=== PATIENT | female | born 1980 | race African-American/Black ===

== ENCOUNTER 2017-01-25 10:37 | Inpatient (IN) | payer MEDICARE, OTHER ==
[2017-01-25] VITALS (12 sets, daily range): BP systolic 95–129; BP diastolic 45–69
[~2017-01-25] VITALS: Ht 160 cm; Wt 207.3 kg
[~2017-01-25 10:37] MED LIST: ACET325T16 PO; ALBU2.5V5 NEB; ATEN25TA PO; ENOX40DI SQ; FERR-26 PO; FURO-68 PO; LEVO500T38 PO; LEVO750T31 PO; MEDR10TA3 PO; METF500T4 PO; METH29OI TP; MINE120C TP; NAPR220T70 PO; NAPR500T PO; PANT40TA5 PO; PRED-220 PO; PROAIR HFA8.5 GM IH; [UNRECOGNIZED DRUG - OTHER]; hypertension
[2017-01-25] MEDS ORDERED: 0.9 % SODIUM CHLORIDE 10 ML DISP.SYRIN. IV PRN (11:00)
--- NOTE | 2017-01-25 11:14 | RAD ---
Indication: Dizziness and shortness of breath. Time of exam 10:59 AM Correlation is made with prior chest from 08/13/2016. The heart is enlarged but stable. There is central congestion but no overt failure. No effusion or pneumothorax is seen. Impression: Cardiomegaly and central congestion.
[2017-01-25] MEDS ORDERED: IV NORMAL SALINE 1000ML BAG 1,000 ML IV SCH (11:15)
--- NOTE | 2017-01-25 11:16 | EKG ---
[facility] [address] [place] [address] Test Date: 2017-01-25 Test Time: 10:41:40 Pat Name: SIRIA PHAN Department: Room: Gender: F Sap Basis: : 1980 Requested By: CHANDAN ELISE Order Number: [id number] Reading MD: Willme Mccullough Measurements Intervals [place] Rate: 84 P: 64 [place]: 128 QRS: 66 QRSD: 94 T: 26 QT: 342 QTc: 407 Interpretive Statements SINUS RHYTHM Electronically Signed On 01-30-2017 9:18:07 CDT by Willem Mccullough
[2017-01-25 11:32] LABS: BASE EXCESS COOX 21 mmol/L (-3-3); CARBON MONOXIDE 0.6 % (0.0-1.9); HCO3 COOX 53 mmol/L (21-28); METHEMOGLOBIN 0.4 % (0.0-1.9); OXYHEMOGLOBIN 85.5 %; PH COOX 7.25 (7.35-7.45); PO2 COOX 62 mmHg (85-108); SAT O2 COOX 86 % (92-99); TOTAL HEMOGLOBIN 9.8 g/dL
[2017-01-25 11:47] LABS: BLOOD UREA NITROGEN 17 mg/dL (7-20); BUN/CREATININE RATIO 34 (6-20); CALCIUM 8.8 mg/dL (8.5-10.1); CARBON DIOXIDE 45 mmol/L (21-32); CHLORIDE 100 mmol/L (98-107); CREATININE 0.5 mg/dL (0.6-1.0); GFR 167.1; GLUCOSE 115 mg/dL (70-99); POTASSIUM 4.5 mmol/L (3.5-5.1); SODIUM 141 mmol/L (136-145)
[2017-01-25 11:51] LABS: ALBUMIN 2.9 g/dL (3.4-5.0); ALBUMIN/GLOBULIN RATIO 0.6 (1.0-1.7); ALK PHOS 66 U/L (46-116); ALT (SGPT) 22 U/L (14-59); AST (SGOT) 13 U/L (15-37); TOTAL BILIRUBIN 0.3 mg/dL (0.2-1.0); TOTAL PROTEIN 8.1 g/dL (6.4-8.2)
--- NOTE | 2017-01-25 12:18 | PHYS DOC ---
Past Medical History Past Medical History: Anemia, Asthma, CHF, COPD, Diabetes-Type II, Hypertension , Other Additional Past Medical Histor: morbid obesity, PICA (dirt), obesity hypoventilation, HYPERCAPNIA Past Surgical History: Alcohol Use: None Drug Use: None Adult General Chief Complaint Chief Complaint: DIZZY/LIGHT HEADED HPI HPI PCP is Dr. Chirag Galvan She is a 36-year-old morbidly obese female with history of obstructive sleep apnea and hypercarbia visits with respiratory distress that began this morning. Patient is normally on BiPAP at home admit she's not been able to tolerate her BiPAP last few days and has not worn it this morning extremely tired very short of breath with exertion with no chest pain no abdominal pain noted, no cough with production of sputum no URI symptoms no fevers or chills. Patient has peripheral edema all the time nothing new today nothing changed. Patient admits to no change in medications no sick contacts or recent antibiotic. Review of Systems Review of Systems Constitutional: Denies fever or chills [] Eyes: Denies change in visual acuity, redness, or eye pain [] HENT: Denies nasal congestion or sore throat [] Respiratory: Minus shortness of breath without cough. Cardiovascular: No additional information not addressed in HPI [] GI: Denies abdominal pain, nausea, vomiting, bloody stools or diarrhea [] : Denies dysuria or hematuria [] Extremities: Patient has peripheral edema lower +2 midthigh. Integument: chronic venous stasis in the lower external is bilaterally Neurologic: Denies headache, focal weakness or sensory changes [] Endocrine: Denies polyuria or polydipsia [] Current Medications Current Medications Current Medications Medications (Trade) Dose Ordered Sig/Abdiel Start Time Stop Time Status Last Admin Dose Admin Sodium Chloride 1,000 ml @ 1,000 mls/hr Q1H 01/25/17 11:15 01/25/17 12:14 01/25/17 11:09 1,000 MLS/HR Sodium Chloride (Normal Saline Flush) 10 ml QSHIFT PRN 01/25/17 11:00 01/25/17 11:09 10 ML Allergies Allergies Allergies Coded Allergies Type Severity Reaction Last Updated Verified No Known Drug Allergies 10/01/14 No Physical Exam Physical Exam Constitutional: Morbidly obese patient with obvious respiratory distress nontoxic in appearance is able speak in 3-5 word sentences. No obvious respiratory retractions HENT: Normocephalic, atraumatic, bilateral external ears normal, oropharynx is dry with poor dentition Eyes: PERRLA, EOMI, conjunctiva normal, no discharge. [] Neck: Normal range of motion, no tenderness, supple, no stridor. [] Cardiovascular tachycardia noted Lungs & Thorax: Patient with decreased breath sounds in all lung antunez secondary to body habitus no wheezes obvious E noted. Abdomen: Bowel sounds normal, soft, no tenderness, no masses, no pulsatile masses. [] Skin: Warm, dry, no erythema, no rash. [] Back: No tenderness, no CVA tenderness. [] Extremities: No tenderness, no cyanosis, noted edema in the lower x-rays bilaterally. Neurologic: Alert and oriented X 3, normal motor function, normal sensory function, no focal deficits noted. [] Psychologic: Affect normal, judgement normal, mood normal. [] Current Patient Data Vital Signs Vital Signs Date Time Temp Pulse Resp B/P (MAP) Pulse Ox O2 Delivery O2 Flow Rate FiO2 01/25/17 11:44 100 BiPAP/CPAP 01/25/17 10:40 98.3 88 20 148/63 (91) 4.0 98.3 Lab Values Laboratory Tests Test 01/25/17 11:00 D-Dimer ([place]) 0.28 ug/mlFEU (0.00-0.50) Sodium Level 141 mmol/L (136-145) Potassium Level 4.5 mmol/L (3.5-5.1) Chloride Level 100 mmol/L (98-107) Carbon Dioxide Level 45 mmol/L (21-32) H Anion Gap -4 (6-14) L Blood Urea Nitrogen 17 mg/dL (7-20) Creatinine 0.5 mg/dL (0.6-1.0) L Estimated GFR (Cockcroft-Gault) 167.1 BUN/Creatinine Ratio 34 (6-20) H Glucose Level 115 mg/dL (70-99) H Calcium Level 8.8 mg/dL (8.5-10.1) Total Bilirubin 0.3 mg/dL (0.2-1.0) Aspartate Amino Transferase (AST) 13 U/L (15-37) L Alanine Aminotransferase (ALT) 22 U/L (14-59) Alkaline Phosphatase 66 U/L (46-116) Troponin I Quantitative < 0.017 ng/mL (0.000-0.055) Total Protein 8.1 g/dL (6.4-8.2) Albumin 2.9 g/dL (3.4-5.0) L Albumin/Globulin Ratio 0.6 (1.0-1.7) L Laboratory Tests 01/25/17 11:00 EKG EKG EKG, read by Dr. Elise hr 84, NSR, ns t wave changes, no ST changes, normal TN, QRS interval] Radiology/Procedures Radiology/Procedures [] IMAGING REPORT Signed PATIENT: SIRIA PHAN ACCOUNT: [id number] : 1980 LOCATION: ER AGE: 36 SEX: F EXAM STATUS: PRE ER ORD. PHYSICIAN: CHANDAN ELISE MD REASON: dizziness shortness of breath PROCEDURE: CHEST AP ONLY Indication: Dizziness and shortness of breath. Time of exam 10:59 AM Correlation is made with prior chest from 08/13/2016. The heart is enlarged but stable. There is central congestion but no overt failure. No effusion or pneumothorax is seen. Impression: Cardiomegaly and central congestion. DICTATED and SIGNED BY: DENIS LOPEZ MD DATE: 01/25/17 1111 CC: CHANDAN ELISE MD; GEE LAW MD ~ Course & Med Decision Making Course & Med Decision Making Pertinent Labs and Imaging studies reviewed. (See chart for details) [] Dragon Disclaimer Dragon Disclaimer This electronic medical record was generated, in whole or in part, using a voice recognition dictation system. Departure Departure Referrals: GEE LAW MD (PCP) CHANDAN ELISE MD January 25, 2017 12:18
--- NOTE | 2017-01-25 12:23 | RAD ---
Indication: Dizziness. Axial imaging through the brain was performed without contrast. The ventricles and sulci are within normal limits. No sulcal effacement, midline shift or hemorrhage is detected. The cisterns are patent. The visualized paranasal sinuses are clear. Impression: No acute intracranial process is detected. PQRS Compliance Statement: One or more of the following individualized dose reduction techniques were utilized for this examination: 1. Automated exposure control 2. Adjustment of the mA and/or kV according to patient size 3. Use of iterative reconstruction technique
[2017-01-25] MEDS ORDERED: ACETAMINOPHEN 325 MG TABLET. PO PRN ×2 (12:30→21:00)
[2017-01-25] MEDS ORDERED: ONDANSETRON PF 4 MG/2 ML VIAL. IV PRN ×2 (12:30→21:00)
[2017-01-25 12:33] LABS: BASO # 0.1 x10^3/uL (0.0-0.2); BASO % 1 % (0-3); EOS % 1 % (0-3); HEMATOCRIT 37.4 % (36.0-47.0); HEMOGLOBIN 10.7 g/dL (12.0-15.5); LYMPH # 1.6 x10^3/uL (1.0-4.8); LYMPH % 25 % (24-48); MEAN CORPUSCULAR HEMOGLOBIN 21 pg (25-35); MEAN CORPUSCULAR HGB CONC 29 g/dL (31-37); MEAN CORPUSCULAR VOLUME 73 fL (79-100); MONO % 10 % (0-9); NEUT % 63 % (31-73); PLATELET COUNT 241 x10^3/uL (140-400); RED BLOOD COUNT 5.16 x10^6/uL (3.50-5.40); RED CELL DISTRIBUTION WIDTH 19.8 % (11.5-14.5); WHITE BLOOD COUNT 6.5 x10^3/uL (4.0-11.0)
--- NOTE | 2017-01-25 13:05 | PDOC ---
Provider Note Provider Note DICTATED SEE ORDERS ADORE OCONNOR MD January 25, 2017 13:05
[2017-01-25 13:13] LABS: FIO2 COOX 34; PCO2 COOX 122 mmHg (35-46)
[2017-01-25] MEDS ORDERED: FUROSEMIDE 40 MG/4 ML VIAL. IVP ONE (13:15)
--- NOTE | 2017-01-25 13:28 | CONS ---
DATE OF CONSULTATION: 01/25/2017 ATTENDING PHYSICIAN: Dr. Tovar. REASON FOR CONSULTATION: Respiratory failure. HISTORY OF PRESENT ILLNESS: The patient is very well known to us. She has a history of chronic respiratory failure due to obstructive sleep apnea and obesity hypoventilation syndrome with multiple admissions on a regular basis due to acute on chronic hypercapnic respiratory failure. Last time she was here was in July. She was brought into the hospital with complaints of shortness of breath and more lethargy. She was dozing off in between conversations. She did not use BiPAP for the last 4 days. The patient was seen by me in the ER. Her initial blood gases are not in [facility] yet, but I was told that pH was 7.25, pCO2 was 122, and a pO2 in the 60s. She is awake, but she does doze off in between conversation. She is currently on BiPAP at 22/6 and a rate of 18. FiO2 is 30%. I have reviewed chest x-ray. It shows mild congestive heart failure. She denies any increased cough. No chest pain. She has chronic lower extremity edema and venous stasis. No nausea, vomiting, or headaches. PAST MEDICAL HISTORY: Significant for history of chronic respiratory failure secondary to obesity hypoventilation syndrome and CHERYL, history of type 2 diabetes, history of diastolic heart failure, history of morbid obesity, history of chronic gastroesophageal reflux disease, and cor pulmonale. PAST SURGICAL HISTORY: . ALLERGIES: None. REVIEW OF SYSTEMS: Twelve-point system was obtained. Pertinent positives are discussed in my history of present illness, otherwise noncontributory. All systems that were negative were reviewed as well. MEDICATIONS: That were given in the ER were reviewed. SOCIAL HISTORY: She is disabled. She lives at [facility]. No history of alcohol or tobacco use. FAMILY HISTORY: Noncontributory to lungs. PHYSICAL EXAMINATION: GENERAL: She is awake, following commands, but she does doze off in between conversations. VITAL SIGNS: Blood pressure 159/70, pulse ox is 100% on current FiO2 of 30% on BiPAP. HEENT: Sclerae nonicteric. NECK: Supple. LUNGS: Diminished breath sounds. CARDIOVASCULAR: Regular rate. ABDOMEN: Morbidly obese. EXTREMITIES: With bilateral edema and venous stasis. LABORATORY DATA: Reviewed. White cell count 6.5, hemoglobin 10.7, and platelets are 241. BUN is 17, creatinine 0.5. IMPRESSION: 1. Acute on chronic hypercapnic respiratory failure secondary to noncompliance to home BiPAP suspected acute on chronic cor pulmonale/acute on chronic diastolic heart failure. 2. Obesity hypoventilation syndrome due to morbid obesity and obstructive sleep apnea with recent intolerance to home BiPAP. 3. Abnormal chest x-ray with bilateral interstitial infiltrates consistent with congestive heart failure, either right or left heart. 4. Normal D-dimer. No further investigation is needed. 5. Acute encephalopathy. RECOMMENDATIONS: 1. I have increased the IPAP to 26 and respiratory rate 26. 2. Follow ABGs and make necessary adjustments. 3. Diuresis. 4. Bronchodilators. 5. Deep venous thrombosis prophylaxis. 6. The patient was instructed regarding the importance of compliance with BiPAP. 7. Follow chest x-ray as needed. 8. Discussed with ER physician and respiratory therapist. Critical Care Time: 37 minutes. ADORE OCONNOR MD DR: DIANNE/darshan JOB#: [id number] / [id number] HECTOR
[2017-01-25] MEDS ORDERED: ENOXAPARIN 40 MG/0.4 ML SYRINGE. SQ SCH (14:00)
[2017-01-25] MEDS: IPRATRPIUM/ALBUTEROL 0.5/2.5MG 3 ML NEBU. NEB SCH ×2 (16:50→20:56)
[2017-01-25 17:08] LABS: HCO3 ABG 45 mmol/L (21-28); PH ABG 7.49 (7.35-7.45); PO2 ABG 73 mmHg (85-108); SAT O2 ABG 95 % (92-99)
[2017-01-25 17:13] LABS: FIO2 ABG 30; PCO2 ABG 61 mmHg (35-46)
--- NOTE | 2017-01-25 20:57 | PDOC1 ---
History and Physical Past Medical History Cardiovascular: CHF Pulmonary: COPD, Other CENTRAL NERVOUS SYSTEM: Other GI: GERD Heme/Onc: Anemia NOS Hepatobiliary: No pertinent hx Psych: No pertinent hx Rheumatologic: No pertinent hx Infectious disease: No pertinent hx Renal/: UTI, Other Endocrine: Diabetes Past Surgical History Past Surgical History: Family History Family History: Family History Unknown Social History ALCOHOL: none Drugs: None Current Problem List Problem List Problems Medical Problems: (1) Acute on chronic respiratory failure with hypoxia and hypercapnia Status: Acute Current Medications Current Medications Current Medications Medications (Trade) Dose Ordered Sig/Abdiel Start Time Stop Time Status Last Admin Dose Admin Acetaminophen (Tylenol) 650 mg PRN Q4HRS PRN 01/25/17 12:30 01/26/17 12:29 Albuterol/ Ipratropium (Duoneb) 3 ml RTQID 01/25/17 13:15 01/25/17 16:50 3 ML Enoxaparin Sodium (Lovenox 40mg Syringe) 40 mg Q24H 01/25/17 14:00 01/25/17 14:00 40 MG Furosemide (Lasix) 40 mg 1X ONCE 01/25/17 13:15 01/25/17 13:16 DC 01/25/17 16:03 40 MG Ondansetron HCl (Zofran) 4 mg PRN Q8HRS PRN 01/25/17 12:30 01/26/17 12:29 Sodium Chloride 1,000 ml @ 1,000 mls/hr Q1H 01/25/17 11:15 01/25/17 12:14 DC 01/25/17 11:09 1,000 MLS/HR Sodium Chloride (Normal Saline Flush) 10 ml QSHIFT PRN 01/25/17 11:00 01/25/17 11:09 10 ML Allergies Allergies Allergies Coded Allergies Type Severity Reaction Last Updated Verified No Known Drug Allergies 10/01/14 No ROS Review of System CONSTITUTIONAL: No fever or chills EYES: No recent changes SKIN: No rash or itching CARDIOVASCULAR: No chest pain, syncope, palpitations, or edema RESPIRATORY: SOB GASTROINTESTINAL: No nausea, vomiting or abdominal pain NEUROLOGICAL: No headaches or weakness ENDOCRINE: No cold or heat intolerance GENITOURINARY: No urgency or frequency of urination MUSCULOSKELETAL: No back pain or joint pain LYMPHATICS: No enlarged lymph nodes PSYCHIATRIC: No anxiety or depression Physical Exam Physical Exam GEN.: No apparent distress. Alert On Bipap, OBESE HEENT: Head is normocephalic, atraumatic NECK: Supple. no JVD LUNGS: Decreased BS, HEART: RRR, S1, S2 present. Peripheral pulses intact ABDOMEN: Soft, nontender. Positive bowel sounds. EXTREMITIES: mild edema. NEUROLOGIC: Normal speech, normal tone PSYCHIATRIC: Normal affect, normal mood. SKIN: dry. Vitals Vitals Vital Signs Date Time Temp Pulse Resp B/P (MAP) Pulse Ox O2 Delivery O2 Flow Rate FiO2 01/25/17 18:00 80 29 111/56 (74) 30 BiPAP/CPAP 01/25/17 15:00 30.0 01/25/17 13:30 97.0 97.0 Labs Labs Laboratory Tests Test 01/25/17 11:00 01/25/17 11:20 01/25/17 12:20 01/25/17 13:00 D-Dimer ([place]) 0.28 ug/mlFEU (0.00-0.50) Sodium Level 141 mmol/L (136-145) Potassium Level 4.5 mmol/L (3.5-5.1) Chloride Level 100 mmol/L (98-107) Carbon Dioxide Level 45 mmol/L (21-32) Anion Gap -4 (6-14) Blood Urea Nitrogen 17 mg/dL (7-20) Creatinine 0.5 mg/dL (0.6-1.0) Estimated GFR (Cockcroft-Gault) 167.1 BUN/Creatinine Ratio 34 (6-20) Glucose Level 115 mg/dL (70-99) Calcium Level 8.8 mg/dL (8.5-10.1) Total Bilirubin 0.3 mg/dL (0.2-1.0) Aspartate Amino Transf (AST/SGOT) 13 U/L (15-37) Alanine Aminotransferase (ALT/SGPT) 22 U/L (14-59) Alkaline Phosphatase 66 U/L (46-116) Troponin I Quantitative < 0.017 ng/mL (0.000-0.055) Total Protein 8.1 g/dL (6.4-8.2) Albumin 2.9 g/dL (3.4-5.0) Albumin/Globulin Ratio 0.6 (1.0-1.7) O2 Saturation 86 % (92-99) Arterial Blood pH 7.25 (7.35-7.45) Arterial Blood pCO2 at Patient Temp 122 mmHg (35-46) Arterial Blood pO2 at Patient Temp 62 mmHg (85-108) Arterial Blood HCO3 53 mmol/L (21-28) Arterial Blood Base Excess 21 mmol/L (-3-3) Oxyhemoglobin 85.5 % Methemoglobin 0.4 % (0.0-1.9) Carbon Monoxide, Quantitative 0.6 % (0.0-1.9) FiO2 34 White Blood Count 6.5 x10^3/uL (4.0-11.0) Red Blood Count 5.16 x10^6/uL (3.50-5.40) Hemoglobin 10.7 g/dL (12.0-15.5) Hematocrit 37.4 % (36.0-47.0) Mean Corpuscular Volume 73 fL (79-100) Mean Corpuscular Hemoglobin 21 pg (25-35) Mean Corpuscular Hemoglobin Concent 29 g/dL (31-37) Red Cell Distribution Width 19.8 % (11.5-14.5) Platelet Count 241 x10^3/uL (140-400) Neutrophils (%) (Auto) 63 % (31-73) Lymphocytes (%) (Auto) 25 % (24-48) Monocytes (%) (Auto) 10 % (0-9) Eosinophils (%) (Auto) 1 % (0-3) Basophils (%) (Auto) 1 % (0-3) Neutrophils # (Auto) 4.1 x10^3uL (1.8-7.7) Lymphocytes # (Auto) 1.6 x10^3/uL (1.0-4.8) Monocytes # (Auto) 0.7 x10^3/uL (0.0-1.1) Eosinophils # (Auto) 0.1 x10^3/uL (0.0-0.7) Basophils # (Auto) 0.1 x10^3/uL (0.0-0.2) Lactic Acid Level 1.2 mmol/L (0.4-2.0) Test 01/25/17 15:40 01/25/17 18:30 O2 Saturation 95 % (92-99) Arterial Blood pH 7.49 (7.35-7.45) Arterial Blood pCO2 at Patient Temp 61 mmHg (35-46) Arterial Blood pO2 at Patient Temp 73 mmHg (85-108) Arterial Blood HCO3 45 mmol/L (21-28) Arterial Blood Base Excess 19 mmol/L (-3-3) FiO2 30 Troponin I Quantitative < 0.017 ng/mL (0.000-0.055) Laboratory Tests Test 01/25/17 11:00 01/25/17 11:20 01/25/17 12:20 01/25/17 13:00 D-Dimer ([place]) 0.28 ug/mlFEU (0.00-0.50) Sodium Level 141 mmol/L (136-145) Potassium Level 4.5 mmol/L (3.5-5.1) Chloride Level 100 mmol/L (98-107) Carbon Dioxide Level 45 mmol/L (21-32) Anion Gap -4 (6-14) Blood Urea Nitrogen 17 mg/dL (7-20) Creatinine 0.5 mg/dL (0.6-1.0) Estimated GFR (Cockcroft-Gault) 167.1 BUN/Creatinine Ratio 34 (6-20) Glucose Level 115 mg/dL (70-99) Calcium Level 8.8 mg/dL (8.5-10.1) Total Bilirubin 0.3 mg/dL (0.2-1.0) Aspartate Amino Transf (AST/SGOT) 13 U/L (15-37) Alanine Aminotransferase (ALT/SGPT) 22 U/L (14-59) Alkaline Phosphatase 66 U/L (46-116) Troponin I Quantitative < 0.017 ng/mL (0.000-0.055) Total Protein 8.1 g/dL (6.4-8.2) Albumin 2.9 g/dL (3.4-5.0) Albumin/Globulin Ratio 0.6 (1.0-1.7) O2 Saturation 86 % (92-99) Arterial Blood pH 7.25 (7.35-7.45) Arterial Blood pCO2 at Patient Temp 122 mmHg (35-46) Arterial Blood pO2 at Patient Temp 62 mmHg (85-108) Arterial Blood HCO3 53 mmol/L (21-28) Arterial Blood Base Excess 21 mmol/L (-3-3) Oxyhemoglobin 85.5 % Methemoglobin 0.4 % (0.0-1.9) Carbon Monoxide, Quantitative 0.6 % (0.0-1.9) FiO2 34 White Blood Count 6.5 x10^3/uL (4.0-11.0) Red Blood Count 5.16 x10^6/uL (3.50-5.40) Hemoglobin 10.7 g/dL (12.0-15.5) Hematocrit 37.4 % (36.0-47.0) Mean Corpuscular Volume 73 fL (79-100) Mean Corpuscular Hemoglobin 21 pg (25-35) Mean Corpuscular Hemoglobin Concent 29 g/dL (31-37) Red Cell Distribution Width 19.8 % (11.5-14.5) Platelet Count 241 x10^3/uL (140-400) Neutrophils (%) (Auto) 63 % (31-73) Lymphocytes (%) (Auto) 25 % (24-48) Monocytes (%) (Auto) 10 % (0-9) Eosinophils (%) (Auto) 1 % (0-3) Basophils (%) (Auto) 1 % (0-3) Neutrophils # (Auto) 4.1 x10^3uL (1.8-7.7) Lymphocytes # (Auto) 1.6 x10^3/uL (1.0-4.8) Monocytes # (Auto) 0.7 x10^3/uL (0.0-1.1) Eosinophils # (Auto) 0.1 x10^3/uL (0.0-0.7) Basophils # (Auto) 0.1 x10^3/uL (0.0-0.2) Lactic Acid Level 1.2 mmol/L (0.4-2.0) Test 01/25/17 15:40 01/25/17 18:30 O2 Saturation 95 % (92-99) Arterial Blood pH 7.49 (7.35-7.45) Arterial Blood pCO2 at Patient Temp 61 mmHg (35-46) Arterial Blood pO2 at Patient Temp 73 mmHg (85-108) Arterial Blood HCO3 45 mmol/L (21-28) Arterial Blood Base Excess 19 mmol/L (-3-3) FiO2 30 Troponin I Quantitative < 0.017 ng/mL (0.000-0.055) VTE Prophylaxis Ordered VTE Prophylaxis Devices: Yes VTE Pharmacological Prophylaxi: Yes MEY OSBORNE MD January 25, 2017 20:57
[2017-01-25] MEDS ORDERED: ALBUTEROL SULFATE 2.5 MG/3 ML NEBU. NEB PRN (21:00)
[2017-01-25] MEDS ORDERED: hydrALAZINE 20 MG/ML VIAL. IVP PRN (21:00)
[2017-01-25] MEDS ORDERED: DEXTROSE 50% 25 GM / 50ML DISP.SYRIN. IV PRN (21:00)
[2017-01-25] MEDS ORDERED: HYDROcodone/APAP 5/325MG 1 TAB TABLET PO PRN (21:00)
[2017-01-26] VITALS (13 sets, daily range): BP systolic 103–155; BP diastolic 55–84
[2017-01-26 08:12] LABS: CALCIUM 8.8 mg/dL (8.5-10.1); CREATININE 0.5 mg/dL (0.6-1.0); GFR 167.1; POTASSIUM 4.1 mmol/L (3.5-5.1)
[2017-01-26] MEDS: IPRATRPIUM/ALBUTEROL 0.5/2.5MG 3 ML NEBU. NEB SCH ×4 (08:35→20:16)
[2017-01-26 08:42] LABS: HCO3 ABG 40 mmol/L (21-28); PCO2 ABG 58 mmHg (35-46); PH ABG 7.45 (7.35-7.45); PO2 ABG 76 mmHg (85-108); SAT O2 ABG 95 % (92-99)
[2017-01-26 08:45] LABS: FIO2 ABG 30
[2017-01-26] MEDS ORDERED: SULFUR HEXAFLUORIDE MICROSPHR 25 MG VIAL. IVP ONE ×2 (08:50→09:15)
[2017-01-26] MEDS: INSULIN ASPART 300 UNITS/3 ML INSULN.PEN SQ SCH ×3 (09:20→16:16)
--- NOTE | 2017-01-26 09:41 | HP ---
ADMIT DATE: 01/25/2017 CHIEF COMPLAINT: Dizziness and lightheadedness. HISTORY OF PRESENT ILLNESS: A 36-year-old morbidly obese female patient with prior history of COPD and respiratory failure, on BiPAP at home, presented to the ER with complaints of some dizziness and at the time of arrival she was confused and not able to have a good conversation, some dozing off. Initially her ABG showed severe hypercapnic respiratory failure. I have seen the patient in the critical care unit. Her symptoms improved and able to have some conversations. She says she did not use her BiPAP for the last couple of days as she could not able to tolerate. She denies any chest pain, palpitations, currently feeling comfortable. She has chronic lower extremity edema. No fever, no chills. PAST MEDICAL HISTORY: Anemia, asthma, chronic diastolic heart failure, type 2 diabetes mellitus and hypertension. Morbid obesity, ____, hyperventilation, hypercapneic respiratory failure. PAST SURGICAL HISTORY: . PERSONAL HISTORY: No smoking, no alcohol, no drug abuse. FAMILY HISTORY: Unknown to patient, questionable hypertension. REVIEW OF SYSTEMS: Please see my electronic H and P. PHYSICAL EXAMINATION: Please see my electronic H and P. ALLERGIES: NKDA. MEDICATIONS: Home medication list to be verified. LABORATORY FINDINGS: ABGs: pH is 7.25, pCO2 is 122, pO2 is 62, base excess 21. Chemistry: Sodium 141, potassium 4.5, chloride is ____, carbon dioxide 45, creatinine 0.5, GFR 167. Troponins 2 sets are negative. Hematology: Hemoglobin 10.7, WBC 6.5, platelets 241, MCV is 73. IMAGING STUDIES: Chest x-ray: Cardiomegaly with some congestion. ASSESSMENT AND PLAN: 1. Acute on chronic hypercapnic respiratory failure. 2. Morbid obesity. 3. Obesity, hypoventilation. 4. Diabetes mellitus. 5. Hypertension. 6. Chronic diastolic heart failure. PLAN: 1. She has been placed on BiPAP currently in the Critical Care Unit. ABGs are improving with BiPAP. 2. Continue BiPAP tonight. 3. Periodic nebulizations and bronchodilators. 4. Solu-Medrol, IV 5. She received IV Lasix in the ER., Intake and out pt monitoring. Monitor renal functions. 6. If symptoms persist, we will get an echocardiogram. 7. Home medications needs to be verified. I will start her on sliding scale insulin. 8. Overall prognosis is guarded. MEY OSBORNE MD DR: BRUNO/darshan JOB#: [id number] / [id number] HECTOR
--- NOTE | 2017-01-26 09:45 | PDOC ---
PROGRESS NOTES Chief Complaint Chief Complaint Acute hypoxic, hypercapnic respir failure ASSESSMENT IN PLAN: 1. CHF exacerbation: diastolic. essentially resolved this AM. restart atenol. appreciate Dr Butts's input. 2. CHERYL: on BiPAP at home, non-compliant 3. Obesity hypoventilation syndrome 4. Acute encephalopathy: 2/2 hypoxia. now resolved 5. Anemia: microcytic. iron deficiency in Jun, but appears unchanged today. recheck iron. if low, IV iron admin. hx menorrhagia 6. Menorrhagia: ongoing. supposed to get hormone shots for control 7. DM2: has not been refilling her meds since last March. obtain HgbA1c. restart metformin 8. Prophylaxis: lovenox, H2B 9. Noncompliance: spoke with her PCP, Dr Starr: had been in a care facility , but left after 3 months, has been living with her daughter and brother for the past 6 months, no med F/U since. F/U NOHEMI 10. Dispo: anticipate D/C in AM Vitals Vitals Vital Signs Date Time Temp Pulse Resp B/P (MAP) Pulse Ox O2 Delivery O2 Flow Rate FiO2 01/26/17 08:32 100 BiPAP/CPAP 01/26/17 07:00 89 30 124/66 (85) 01/26/17 05:00 4.0 01/26/17 04:00 98.4 98.4 Physical Exam General: Alert, Cooperative, No acute distress Heart: Regular rate Lungs: Clear, Other Abdomen: Normal bowel sounds, No tenderness, Other (massively obese) Extremities: No clubbing, No edema Skin: No rashes Labs LABS Laboratory Tests Test 01/25/17 11:00 01/25/17 11:20 01/25/17 12:20 01/25/17 13:00 D-Dimer ([place]) 0.28 ug/mlFEU (0.00-0.50) Sodium Level 141 mmol/L (136-145) Potassium Level 4.5 mmol/L (3.5-5.1) Chloride Level 100 mmol/L (98-107) Carbon Dioxide Level 45 mmol/L (21-32) Anion Gap (6-14) Blood Urea Nitrogen 17 mg/dL (7-20) Creatinine 0.5 mg/dL (0.6-1.0) Estimated GFR (Cockcroft-Gault) 167.1 BUN/Creatinine Ratio 34 (6-20) Glucose Level 115 mg/dL (70-99) Calcium Level 8.8 mg/dL (8.5-10.1) Total Bilirubin 0.3 mg/dL (0.2-1.0) Aspartate Amino Transf (AST/SGOT) 13 U/L (15-37) Alanine Aminotransferase (ALT/SGPT) 22 U/L (14-59) Alkaline Phosphatase 66 U/L (46-116) Troponin I Quantitative < 0.017 ng/mL (0.000-0.055) Total Protein 8.1 g/dL (6.4-8.2) Albumin 2.9 g/dL (3.4-5.0) Albumin/Globulin Ratio 0.6 (1.0-1.7) O2 Saturation 86 % (92-99) Arterial Blood pH 7.25 (7.35-7.45) Arterial Blood pCO2 at Patient Temp 122 mmHg (35-46) Arterial Blood pO2 at Patient Temp 62 mmHg (85-108) Arterial Blood HCO3 53 mmol/L (21-28) Arterial Blood Base Excess 21 mmol/L (-3-3) Oxyhemoglobin 85.5 % Methemoglobin 0.4 % (0.0-1.9) Carbon Monoxide, Quantitative 0.6 % (0.0-1.9) FiO2 34 White Blood Count 6.5 x10^3/uL (4.0-11.0) Red Blood Count 5.16 x10^6/uL (3.50-5.40) Hemoglobin 10.7 g/dL (12.0-15.5) Hematocrit 37.4 % (36.0-47.0) Mean Corpuscular Volume 73 fL (79-100) Mean Corpuscular Hemoglobin 21 pg (25-35) Mean Corpuscular Hemoglobin Concent 29 g/dL (31-37) Red Cell Distribution Width 19.8 % (11.5-14.5) Platelet Count 241 x10^3/uL (140-400) Neutrophils (%) (Auto) 63 % (31-73) Lymphocytes (%) (Auto) 25 % (24-48) Monocytes (%) (Auto) 10 % (0-9) Eosinophils (%) (Auto) 1 % (0-3) Basophils (%) (Auto) 1 % (0-3) Neutrophils # (Auto) 4.1 x10^3uL (1.8-7.7) Lymphocytes # (Auto) 1.6 x10^3/uL (1.0-4.8) Monocytes # (Auto) 0.7 x10^3/uL (0.0-1.1) Eosinophils # (Auto) 0.1 x10^3/uL (0.0-0.7) Basophils # (Auto) 0.1 x10^3/uL (0.0-0.2) Lactic Acid Level 1.2 mmol/L (0.4-2.0) Test 01/25/17 15:40 01/25/17 18:30 01/25/17 21:15 01/26/17 07:45 O2 Saturation 95 % (92-99) Arterial Blood pH 7.49 (7.35-7.45) Arterial Blood pCO2 at Patient Temp 61 mmHg (35-46) Arterial Blood pO2 at Patient Temp 73 mmHg (85-108) Arterial Blood HCO3 45 mmol/L (21-28) Arterial Blood Base Excess 19 mmol/L (-3-3) FiO2 30 Troponin I Quantitative < 0.017 ng/mL (0.000-0.055) < 0.017 ng/mL (0.000-0.055) Glucose (Fingerstick) 146 mg/dL (70-99) Sodium Level 140 mmol/L (136-145) Potassium Level 4.1 mmol/L (3.5-5.1) Chloride Level 99 mmol/L (98-107) Carbon Dioxide Level 41 mmol/L (21-32) Anion Gap 0 (6-14) Blood Urea Nitrogen 20 mg/dL (7-20) Creatinine 0.5 mg/dL (0.6-1.0) Estimated GFR (Cockcroft-Gault) 167.1 Glucose Level 165 mg/dL (70-99) Calcium Level 8.8 mg/dL (8.5-10.1) Test 01/26/17 08:00 O2 Saturation 95 % (92-99) Arterial Blood pH 7.45 (7.35-7.45) Arterial Blood pCO2 at Patient Temp 58 mmHg (35-46) Arterial Blood pO2 at Patient Temp 76 mmHg (85-108) Arterial Blood HCO3 40 mmol/L (21-28) Arterial Blood Base Excess 14 mmol/L (-3-3) FiO2 30 ABRAM ELIAS MD January 26, 2017 09:44
[2017-01-26 10:22] LABS: % SAT IRON 5 % (15-34); IRON,SERUM 23 ug/dL (50-170)
[2017-01-26] MEDS: ATENOLOL 25 MG TABLET. PO SCH (10:50)
[2017-01-26] MEDS: PANTOPRAZOLE 40 MG TABLET.DR. PO SCH (10:50)
[2017-01-26] MEDS: metFORMIN 500 MG TABLET PO SCH ×2 (10:50→16:15)
[2017-01-26] MEDS: FUROSEMIDE 40 MG TABLET. PO SCH (10:50)
--- NOTE | 2017-01-26 11:13 | PDOC ---
PULMONARY PROGRESS NOTES Subjective fully awake, off BIPAP ABG much improved Vitals Vital Signs Date Time Temp Pulse Resp B/P (MAP) Pulse Ox O2 Delivery O2 Flow Rate FiO2 01/26/17 10:50 97 155/76 01/26/17 10:00 30 99 BiPAP/CPAP 3.0 01/26/17 08:00 98.6 98.6 General: Alert, No acute distress HEENT: Other Lungs: Other (decrease bs) Cardiovascular: S1 Abdomen: Soft, Other (morbidly obese) Neuro Exam: Alert Extremities: Other (venous stasis, edema) Labs Laboratory Tests Test 01/25/17 11:00 01/25/17 11:20 01/25/17 12:20 01/25/17 13:00 D-Dimer ([place]) 0.28 ug/mlFEU (0.00-0.50) Sodium Level 141 mmol/L (136-145) Potassium Level 4.5 mmol/L (3.5-5.1) Chloride Level 100 mmol/L (98-107) Carbon Dioxide Level 45 mmol/L (21-32) Anion Gap (6-14) Blood Urea Nitrogen 17 mg/dL (7-20) Creatinine 0.5 mg/dL (0.6-1.0) Estimated GFR (Cockcroft-Gault) 167.1 BUN/Creatinine Ratio 34 (6-20) Glucose Level 115 mg/dL (70-99) Calcium Level 8.8 mg/dL (8.5-10.1) Total Bilirubin 0.3 mg/dL (0.2-1.0) Aspartate Amino Transf (AST/SGOT) 13 U/L (15-37) Alanine Aminotransferase (ALT/SGPT) 22 U/L (14-59) Alkaline Phosphatase 66 U/L (46-116) Troponin I Quantitative < 0.017 ng/mL (0.000-0.055) Total Protein 8.1 g/dL (6.4-8.2) Albumin 2.9 g/dL (3.4-5.0) Albumin/Globulin Ratio 0.6 (1.0-1.7) O2 Saturation 86 % (92-99) Arterial Blood pH 7.25 (7.35-7.45) Arterial Blood pCO2 at Patient Temp 122 mmHg (35-46) Arterial Blood pO2 at Patient Temp 62 mmHg (85-108) Arterial Blood HCO3 53 mmol/L (21-28) Arterial Blood Base Excess 21 mmol/L (-3-3) Oxyhemoglobin 85.5 % Methemoglobin 0.4 % (0.0-1.9) Carbon Monoxide, Quantitative 0.6 % (0.0-1.9) FiO2 34 White Blood Count 6.5 x10^3/uL (4.0-11.0) Red Blood Count 5.16 x10^6/uL (3.50-5.40) Hemoglobin 10.7 g/dL (12.0-15.5) Hematocrit 37.4 % (36.0-47.0) Mean Corpuscular Volume 73 fL (79-100) Mean Corpuscular Hemoglobin 21 pg (25-35) Mean Corpuscular Hemoglobin Concent 29 g/dL (31-37) Red Cell Distribution Width 19.8 % (11.5-14.5) Platelet Count 241 x10^3/uL (140-400) Neutrophils (%) (Auto) 63 % (31-73) Lymphocytes (%) (Auto) 25 % (24-48) Monocytes (%) (Auto) 10 % (0-9) Eosinophils (%) (Auto) 1 % (0-3) Basophils (%) (Auto) 1 % (0-3) Neutrophils # (Auto) 4.1 x10^3uL (1.8-7.7) Lymphocytes # (Auto) 1.6 x10^3/uL (1.0-4.8) Monocytes # (Auto) 0.7 x10^3/uL (0.0-1.1) Eosinophils # (Auto) 0.1 x10^3/uL (0.0-0.7) Basophils # (Auto) 0.1 x10^3/uL (0.0-0.2) Lactic Acid Level 1.2 mmol/L (0.4-2.0) Test 01/25/17 15:40 01/25/17 18:30 01/25/17 21:15 01/26/17 07:45 O2 Saturation 95 % (92-99) Arterial Blood pH 7.49 (7.35-7.45) Arterial Blood pCO2 at Patient Temp 61 mmHg (35-46) Arterial Blood pO2 at Patient Temp 73 mmHg (85-108) Arterial Blood HCO3 45 mmol/L (21-28) Arterial Blood Base Excess 19 mmol/L (-3-3) FiO2 30 Troponin I Quantitative < 0.017 ng/mL (0.000-0.055) < 0.017 ng/mL (0.000-0.055) Glucose (Fingerstick) 146 mg/dL (70-99) Sodium Level 140 mmol/L (136-145) Potassium Level 4.1 mmol/L (3.5-5.1) Chloride Level 99 mmol/L (98-107) Carbon Dioxide Level 41 mmol/L (21-32) Anion Gap 0 (6-14) Blood Urea Nitrogen 20 mg/dL (7-20) Creatinine 0.5 mg/dL (0.6-1.0) Estimated GFR (Cockcroft-Gault) 167.1 Glucose Level 165 mg/dL (70-99) Calcium Level 8.8 mg/dL (8.5-10.1) Iron Level 23 ug/dL (50-170) Total Iron Binding Capacity 420 ug/dL (250-450) Iron Saturation 5 % (15-34) Ferritin 6 ng/mL (8-252) Test 01/26/17 08:00 O2 Saturation 95 % (92-99) Arterial Blood pH 7.45 (7.35-7.45) Arterial Blood pCO2 at Patient Temp 58 mmHg (35-46) Arterial Blood pO2 at Patient Temp 76 mmHg (85-108) Arterial Blood HCO3 40 mmol/L (21-28) Arterial Blood Base Excess 14 mmol/L (-3-3) FiO2 30 Laboratory Tests Test 01/25/17 11:20 01/25/17 12:20 01/25/17 13:00 01/25/17 15:40 O2 Saturation 86 % (92-99) 95 % (92-99) Arterial Blood pH 7.25 (7.35-7.45) 7.49 (7.35-7.45) Arterial Blood pCO2 at Patient Temp 122 mmHg (35-46) 61 mmHg (35-46) Arterial Blood pO2 at Patient Temp 62 mmHg (85-108) 73 mmHg (85-108) Arterial Blood HCO3 53 mmol/L (21-28) 45 mmol/L (21-28) Arterial Blood Base Excess 21 mmol/L (-3-3) 19 mmol/L (-3-3) Oxyhemoglobin 85.5 % Methemoglobin 0.4 % (0.0-1.9) Carbon Monoxide, Quantitative 0.6 % (0.0-1.9) FiO2 34 30 White Blood Count 6.5 x10^3/uL (4.0-11.0) Red Blood Count 5.16 x10^6/uL (3.50-5.40) Hemoglobin 10.7 g/dL (12.0-15.5) Hematocrit 37.4 % (36.0-47.0) Mean Corpuscular Volume 73 fL (79-100) Mean Corpuscular Hemoglobin 21 pg (25-35) Mean Corpuscular Hemoglobin Concent 29 g/dL (31-37) Red Cell Distribution Width 19.8 % (11.5-14.5) Platelet Count 241 x10^3/uL (140-400) Neutrophils (%) (Auto) 63 % (31-73) Lymphocytes (%) (Auto) 25 % (24-48) Monocytes (%) (Auto) 10 % (0-9) Eosinophils (%) (Auto) 1 % (0-3) Basophils (%) (Auto) 1 % (0-3) Neutrophils # (Auto) 4.1 x10^3uL (1.8-7.7) Lymphocytes # (Auto) 1.6 x10^3/uL (1.0-4.8) Monocytes # (Auto) 0.7 x10^3/uL (0.0-1.1) Eosinophils # (Auto) 0.1 x10^3/uL (0.0-0.7) Basophils # (Auto) 0.1 x10^3/uL (0.0-0.2) Lactic Acid Level 1.2 mmol/L (0.4-2.0) Test 01/25/17 18:30 01/25/17 21:15 01/26/17 07:45 01/26/17 08:00 Troponin I Quantitative < 0.017 ng/mL (0.000-0.055) < 0.017 ng/mL (0.000-0.055) Glucose (Fingerstick) 146 mg/dL (70-99) Sodium Level 140 mmol/L (136-145) Potassium Level 4.1 mmol/L (3.5-5.1) Chloride Level 99 mmol/L (98-107) Carbon Dioxide Level 41 mmol/L (21-32) Anion Gap 0 (6-14) Blood Urea Nitrogen 20 mg/dL (7-20) Creatinine 0.5 mg/dL (0.6-1.0) Estimated GFR (Cockcroft-Gault) 167.1 Glucose Level 165 mg/dL (70-99) Calcium Level 8.8 mg/dL (8.5-10.1) Iron Level 23 ug/dL (50-170) Total Iron Binding Capacity 420 ug/dL (250-450) Iron Saturation 5 % (15-34) Ferritin 6 ng/mL (8-252) O2 Saturation 95 % (92-99) Arterial Blood pH 7.45 (7.35-7.45) Arterial Blood pCO2 at Patient Temp 58 mmHg (35-46) Arterial Blood pO2 at Patient Temp 76 mmHg (85-108) Arterial Blood HCO3 40 mmol/L (21-28) Arterial Blood Base Excess 14 mmol/L (-3-3) FiO2 30 Medications Active Scripts Medications Dose Route/Sig Max Daily Dose Days Date Category Mapap (Acetaminophen) 325 Mg Tablet 650 Mg PO PRN Q6HRS PRN 01/01/16 Rx Impression . 1. Acute on chronic hypercapnic respiratory failure secondary to noncompliance to home BiPAP and suspected acute on chronic cor pulmonale/ acute on chronic diastolic heart failure. 2. Obesity hypoventilation syndrome and obstructive sleep apnea with recent intolerance to home BiPAP. 3. Abnormal chest x-ray with bilateral interstitial infiltrates consistent with congestive heart failure, either right or left heart. 4. Normal D-dimer. No further investigation is needed. 5. Acute encephalopathy. Plan . 1. BIPAP Qhs and prn during day 2. Follow up ABGs improved. 3. Diuresis. 4. Bronchodilators. 5. Deep venous thrombosis prophylaxis. 6. The patient was instructed regarding the importance of compliance with BiPAP. 7. Follow chest x-ray as needed. 8. Discussed with RN and respiratory therapist. 9. transfer to [facility] ADORE OCONNOR MD January 26, 2017 11:13
[2017-01-26 13:06] LABS: ANISOCYTOSIS SLIGHT; HYPOCHROMIA PRESENT; MICROCYTOSIS MARKED; PLT ESTIMATE ADEQUATE (ADEQUATE)
[2017-01-26 13:26] LABS: BASO % 0 % (0-3); EOS % 1 % (0-3); HEMATOCRIT 29.5 % (36.0-47.0); HEMOGLOBIN 8.7 g/dL (12.0-15.5); LYMPH # 1.7 x10^3/uL (1.0-4.8); LYMPH % 28 % (24-48); MEAN CORPUSCULAR HEMOGLOBIN 21 pg (25-35); MEAN CORPUSCULAR HGB CONC 30 g/dL (31-37); MEAN CORPUSCULAR VOLUME 70 fL (79-100); MONO % 10 % (0-9); NEUT % 61 % (31-73); PLATELET COUNT 247 x10^3/uL (140-400); RED BLOOD COUNT 4.23 x10^6/uL (3.50-5.40); RED CELL DISTRIBUTION WIDTH 19.8 % (11.5-14.5); WHITE BLOOD COUNT 6.3 x10^3/uL (4.0-11.0)
--- NOTE | 2017-01-26 13:29 | CARD ---
APPROVED REPORT EXAM: Two-dimensional and M-mode echocardiogram with Doppler, color Doppler with contrast. Other Information Quality : Technically Limited Rhythm : NSRTechnically limited study due to body habitus. INDICATION Dyspnea Respiratory failure Echo Enhancing Agent Indication: Endocardial border delineation Agent/Amount Used: Lumason 3mL 2D DIMENSIONS RVDd2.8 (2.9-3.5cm)Left Atrium(2D)3.2 (1.6-4.0cm) IVSd1.0 (0.7-1.1cm)Aortic Root(2D)2.6 (2.0-3.7cm) LVDd6.3 (3.9-5.9cm)LVOT Diameter2.1 (1.8-2.4cm) PWd1.0 (0.7-1.1cm)LVDs4.6 (2.5-4.0cm) FS (%) 26.6 %SV103.7 ml LVEF(%)51.0 (>50%) Aortic Valve AoV Peak Anderson.182.7cm/sAoV VTI30.3cm AO Peak GR.13.3mmHgLVOT VTI 20.58cm AO Mean GR.8mmHg Mitral Valve MV E Lbnkzjyb79.0cm/sMV E Peak Gr.4mmHg MV DECEL [id number] A Ablkwgbo06.2cm/s MV HFR79uoL/A Ratio1.2 MV A [id number] (PHT)3.33cm2 TDI Lateral E' P. V9.85cm/sMedial E' P. V8.11cm/s E/Lateral E'9.2E/Medial E'11.2 LEFT VENTRICLE The Left Ventricle is mildly dilated. There is normal left ventricular wall thickness. Left ventricle systolic function is normal. The Ejection Fraction is 50-55%. There is normal LV segmental wall abigail on. The left ventricular diastolic function and filling is normal for age. There is no ventricular se ptal defect visualized. RIGHT VENTRICLE The right ventricle is normal size. The right ventricular systolic function is normal. ATRIA The left atrium size is normal. The right atrium is not well visualized. The interatrial septum is in tact with no evidence for an atrial septal defect or patent foramen ovale as noted on 2-D or Doppler imaging. AORTIC VALVE The aortic valve is not well visualized. Doppler and Color Flow revealed no significant aortic regurg itation. There is no significant aortic valvular stenosis. MITRAL VALVE The mitral valve is normal in structure and function. There is no mitral valve stenosis. Doppler and Color Flow revealed no mitral valve regurgitation noted. TRICUSPID VALVE The tricuspid valve is not well visualized. Doppler and Color Flow revealed no tricuspid valve regurg itation noted. Unable to assess PA pressure. There is no tricuspid valve stenosis. PULMONIC VALVE The pulmonic valve is not well visualized. Doppler and Color Flow revealed no pulmonic valvular regur gitation. There is no pulmonic valvular stenosis. GREAT VESSELS The aortic root is normal in size. Pulmonary veins not recorded. The IVC was not visualized. PERICARDIAL EFFUSION There is no evidence of significant pericardial effusion. Critical Notification Critical Value: No <Conclusion> Technically difficult study. Lumason echo contrast used. Valves poorly visualized. Left ventricle systolic function is normal. The Ejection Fraction is 50-55%. There is normal LV segmental wall motion. There is no evidence of significant pericardial effusion.
[2017-01-26] MEDS ORDERED: IRON SUCROSE COMPLEX 500 MG in IV NORMAL SALINE 250ML 250 ML IV ONE (18:15)
[2017-01-26] MEDS ORDERED: FAMOTIDINE 20 MG/2 ML VIAL IVP SCH (21:00)
[2017-01-27 06:17] LABS: BASO # 0.1 x10^3/uL (0.0-0.2); BASO % 1 % (0-3); EOS % 1 % (0-3); HEMOGLOBIN 9.4 g/dL (12.0-15.5); LYMPH # 2.4 x10^3/uL (1.0-4.8); LYMPH % 34 % (24-48); MEAN CORPUSCULAR HEMOGLOBIN 21 pg (25-35); MEAN CORPUSCULAR HGB CONC 31 g/dL (31-37); MEAN CORPUSCULAR VOLUME 70 fL (79-100); MONO % 9 % (0-9); NEUT % 55 % (31-73); PLATELET COUNT 235 x10^3/uL (140-400); RED BLOOD COUNT 4.46 x10^6/uL (3.50-5.40); WHITE BLOOD COUNT 7.2 x10^3/uL (4.0-11.0)
[2017-01-27 06:31] LABS: CALCIUM 8.7 mg/dL (8.5-10.1); CREATININE 0.5 mg/dL (0.6-1.0); GFR 167.1; POTASSIUM 4.3 mmol/L (3.5-5.1)
[2017-01-27 07:00] VITALS: BP 122/68
[2017-01-27] MEDS: IPRATRPIUM/ALBUTEROL 0.5/2.5MG 3 ML NEBU. NEB SCH ×3 (07:24→15:32)
[2017-01-27] MEDS: INSULIN ASPART 300 UNITS/3 ML INSULN.PEN SQ SCH ×2 (08:00→12:00)
[2017-01-27] MEDS: metFORMIN 500 MG TABLET PO SCH (09:14)
[2017-01-27] MEDS: ATENOLOL 25 MG TABLET. PO SCH (09:14)
[2017-01-27] MEDS: FUROSEMIDE 40 MG TABLET. PO SCH (09:14)
[2017-01-27] MEDS: PANTOPRAZOLE 40 MG TABLET.DR. PO SCH (09:14)
[2017-01-27 11:00] VITALS: BP 139/72
--- NOTE | 2017-01-27 11:20 | PDOC ---
PROGRESS NOTES Chief Complaint Chief Complaint Acute hypoxic, hypercapnic respir failure History of Present Illness History of Present Illness Pt was lying in chair comfortably w/ nasal canula on 4 L O2 Reports significant improvement in breathing No acute complaints Vitals Vitals Vital Signs Date Time Temp Pulse Resp B/P (MAP) Pulse Ox O2 Delivery O2 Flow Rate FiO2 01/27/17 11:00 97.5 81 16 139/72 (94) 96 Nasal Cannula 4.0 97.5 Physical Exam General: Alert, Oriented X3, Cooperative, No acute distress Heart: Regular rate, No murmurs Lungs: Clear, Other (NC 4 L) Abdomen: Normal bowel sounds, No tenderness, Other (massively obese) Extremities: No clubbing, No edema Skin: No rashes, No significant lesion Labs LABS Laboratory Tests Test 01/26/17 12:39 01/26/17 16:10 01/26/17 21:30 01/27/17 05:50 Glucose (Fingerstick) 122 mg/dL (70-99) 97 mg/dL (70-99) 148 mg/dL (70-99) White Blood Count 7.2 x10^3/uL (4.0-11.0) Red Blood Count 4.46 x10^6/uL (3.50-5.40) Hemoglobin 9.4 g/dL (12.0-15.5) Hematocrit 31.0 % (36.0-47.0) Mean Corpuscular Volume 70 fL (79-100) Mean Corpuscular Hemoglobin 21 pg (25-35) Mean Corpuscular Hemoglobin Concent 31 g/dL (31-37) Red Cell Distribution Width 20.0 % (11.5-14.5) Platelet Count 235 x10^3/uL (140-400) Neutrophils (%) (Auto) 55 % (31-73) Lymphocytes (%) (Auto) 34 % (24-48) Monocytes (%) (Auto) 9 % (0-9) Eosinophils (%) (Auto) 1 % (0-3) Basophils (%) (Auto) 1 % (0-3) Neutrophils # (Auto) 4.0 x10^3uL (1.8-7.7) Lymphocytes # (Auto) 2.4 x10^3/uL (1.0-4.8) Monocytes # (Auto) 0.7 x10^3/uL (0.0-1.1) Eosinophils # (Auto) 0.1 x10^3/uL (0.0-0.7) Basophils # (Auto) 0.1 x10^3/uL (0.0-0.2) Sodium Level 139 mmol/L (136-145) Potassium Level 4.3 mmol/L (3.5-5.1) Chloride Level 100 mmol/L (98-107) Carbon Dioxide Level 38 mmol/L (21-32) Anion Gap 1 (6-14) Blood Urea Nitrogen 21 mg/dL (7-20) Creatinine 0.5 mg/dL (0.6-1.0) Estimated GFR (Cockcroft-Gault) 167.1 Glucose Level 102 mg/dL (70-99) Calcium Level 8.7 mg/dL (8.5-10.1) Test 01/27/17 07:18 Glucose (Fingerstick) 100 mg/dL (70-99) Review of Systems Review of Systems Denies Chest pain Denies N/V/D Assessment and Plan Assessmemt and Plan Problems Medical Problems: (1) Acute on chronic respiratory failure with hypoxia and hypercapnia Status: Acute ASSESSMENT: 1. CHF exacerbation: diastolic. essentially resolved this AM. restart atenol. appreciate Dr Butts's input. 2. CHERYL: on BiPAP at home, non-compliant 3. Obesity hypoventilation syndrome 4. Acute encephalopathy: 2/2 hypoxia. now resolved 5. Anemia: microcytic. iron deficiency - improving w/ Hgb at 9.4 6. Menorrhagia: ongoing. supposed to get hormone shots for control 7. DM2: has not been refilling her meds since last March PLAN: Continue pulmonary recommendations Continue to diurese per cardio Hold IV iron as hgb is 9.4 today DVT prophylaxis w/ lovenox D/C today if ok w/ subspecialists F/u w/ PCP in 1 week - discussed w/ pt the importance of remaining compliant w/ meds and seeing her PCP on a regular basis Problems: Comment Review of Relevant I have reviewed the following items jaret (where applicable) has been applied. Labs Laboratory Tests Test 01/25/17 11:20 01/25/17 12:20 01/25/17 13:00 01/25/17 15:40 O2 Saturation 86 % (92-99) 95 % (92-99) Arterial Blood pH 7.25 (7.35-7.45) 7.49 (7.35-7.45) Arterial Blood pCO2 at Patient Temp 122 mmHg (35-46) 61 mmHg (35-46) Arterial Blood pO2 at Patient Temp 62 mmHg (85-108) 73 mmHg (85-108) Arterial Blood HCO3 53 mmol/L (21-28) 45 mmol/L (21-28) Arterial Blood Base Excess 21 mmol/L (-3-3) 19 mmol/L (-3-3) Oxyhemoglobin 85.5 % Methemoglobin 0.4 % (0.0-1.9) Carbon Monoxide, Quantitative 0.6 % (0.0-1.9) FiO2 34 30 White Blood Count 6.5 x10^3/uL (4.0-11.0) Red Blood Count 5.16 x10^6/uL (3.50-5.40) Hemoglobin 10.7 g/dL (12.0-15.5) Hematocrit 37.4 % (36.0-47.0) Mean Corpuscular Volume 73 fL (79-100) Mean Corpuscular Hemoglobin 21 pg (25-35) Mean Corpuscular Hemoglobin Concent 29 g/dL (31-37) Red Cell Distribution Width 19.8 % (11.5-14.5) Platelet Count 241 x10^3/uL (140-400) Neutrophils (%) (Auto) 63 % (31-73) Lymphocytes (%) (Auto) 25 % (24-48) Monocytes (%) (Auto) 10 % (0-9) Eosinophils (%) (Auto) 1 % (0-3) Basophils (%) (Auto) 1 % (0-3) Neutrophils # (Auto) 4.1 x10^3uL (1.8-7.7) Lymphocytes # (Auto) 1.6 x10^3/uL (1.0-4.8) Monocytes # (Auto) 0.7 x10^3/uL (0.0-1.1) Eosinophils # (Auto) 0.1 x10^3/uL (0.0-0.7) Basophils # (Auto) 0.1 x10^3/uL (0.0-0.2) Lactic Acid Level 1.2 mmol/L (0.4-2.0) Test 01/25/17 18:30 01/25/17 21:15 01/26/17 00:28 01/26/17 07:45 Troponin I Quantitative < 0.017 ng/mL (0.000-0.055) < 0.017 ng/mL (0.000-0.055) Glucose (Fingerstick) 146 mg/dL (70-99) Nasal Screen MRSA (PCR) Negative (Negative) White Blood Count 6.3 x10^3/uL (4.0-11.0) Red Blood Count 4.23 x10^6/uL (3.50-5.40) Hemoglobin 8.7 g/dL (12.0-15.5) Hematocrit 29.5 % (36.0-47.0) Mean Corpuscular Volume 70 fL (79-100) Mean Corpuscular Hemoglobin 21 pg (25-35) Mean Corpuscular Hemoglobin Concent 30 g/dL (31-37) Red Cell Distribution Width 19.8 % (11.5-14.5) Platelet Count 247 x10^3/uL (140-400) Neutrophils (%) (Auto) 61 % (31-73) Lymphocytes (%) (Auto) 28 % (24-48) Monocytes (%) (Auto) 10 % (0-9) Eosinophils (%) (Auto) 1 % (0-3) Basophils (%) (Auto) 0 % (0-3) Neutrophils # (Auto) 3.9 x10^3uL (1.8-7.7) Lymphocytes # (Auto) 1.7 x10^3/uL (1.0-4.8) Monocytes # (Auto) 0.6 x10^3/uL (0.0-1.1) Eosinophils # (Auto) 0.0 x10^3/uL (0.0-0.7) Basophils # (Auto) 0.0 x10^3/uL (0.0-0.2) Platelet Estimate Adequate (ADEQUATE) Hypochromasia Present Anisocytosis Slight Microcytosis Marked Sodium Level 140 mmol/L (136-145) Potassium Level 4.1 mmol/L (3.5-5.1) Chloride Level 99 mmol/L (98-107) Carbon Dioxide Level 41 mmol/L (21-32) Anion Gap 0 (6-14) Blood Urea Nitrogen 20 mg/dL (7-20) Creatinine 0.5 mg/dL (0.6-1.0) Estimated GFR (Cockcroft-Gault) 167.1 Glucose Level 165 mg/dL (70-99) Calcium Level 8.8 mg/dL (8.5-10.1) Iron Level 23 ug/dL (50-170) Total Iron Binding Capacity 420 ug/dL (250-450) Iron Saturation 5 % (15-34) Ferritin 6 ng/mL (8-252) Test 01/26/17 08:00 01/26/17 12:39 01/26/17 16:10 01/26/17 21:30 O2 Saturation 95 % (92-99) Arterial Blood pH 7.45 (7.35-7.45) Arterial Blood pCO2 at Patient Temp 58 mmHg (35-46) Arterial Blood pO2 at Patient Temp 76 mmHg (85-108) Arterial Blood HCO3 40 mmol/L (21-28) Arterial Blood Base Excess 14 mmol/L (-3-3) FiO2 30 Glucose (Fingerstick) 122 mg/dL (70-99) 97 mg/dL (70-99) 148 mg/dL (70-99) Test 01/27/17 05:50 01/27/17 07:18 White Blood Count 7.2 x10^3/uL (4.0-11.0) Red Blood Count 4.46 x10^6/uL (3.50-5.40) Hemoglobin 9.4 g/dL (12.0-15.5) Hematocrit 31.0 % (36.0-47.0) Mean Corpuscular Volume 70 fL (79-100) Mean Corpuscular Hemoglobin 21 pg (25-35) Mean Corpuscular Hemoglobin Concent 31 g/dL (31-37) Red Cell Distribution Width 20.0 % (11.5-14.5) Platelet Count 235 x10^3/uL (140-400) Neutrophils (%) (Auto) 55 % (31-73) Lymphocytes (%) (Auto) 34 % (24-48) Monocytes (%) (Auto) 9 % (0-9) Eosinophils (%) (Auto) 1 % (0-3) Basophils (%) (Auto) 1 % (0-3) Neutrophils # (Auto) 4.0 x10^3uL (1.8-7.7) Lymphocytes # (Auto) 2.4 x10^3/uL (1.0-4.8) Monocytes # (Auto) 0.7 x10^3/uL (0.0-1.1) Eosinophils # (Auto) 0.1 x10^3/uL (0.0-0.7) Basophils # (Auto) 0.1 x10^3/uL (0.0-0.2) Sodium Level 139 mmol/L (136-145) Potassium Level 4.3 mmol/L (3.5-5.1) Chloride Level 100 mmol/L (98-107) Carbon Dioxide Level 38 mmol/L (21-32) Anion Gap 1 (6-14) Blood Urea Nitrogen 21 mg/dL (7-20) Creatinine 0.5 mg/dL (0.6-1.0) Estimated GFR (Cockcroft-Gault) 167.1 Glucose Level 102 mg/dL (70-99) Calcium Level 8.7 mg/dL (8.5-10.1) Glucose (Fingerstick) 100 mg/dL (70-99) Laboratory Tests Test 01/26/17 12:39 01/26/17 16:10 01/26/17 21:30 01/27/17 05:50 Glucose (Fingerstick) 122 mg/dL (70-99) 97 mg/dL (70-99) 148 mg/dL (70-99) White Blood Count 7.2 x10^3/uL (4.0-11.0) Red Blood Count 4.46 x10^6/uL (3.50-5.40) Hemoglobin 9.4 g/dL (12.0-15.5) Hematocrit 31.0 % (36.0-47.0) Mean Corpuscular Volume 70 fL (79-100) Mean Corpuscular Hemoglobin 21 pg (25-35) Mean Corpuscular Hemoglobin Concent 31 g/dL (31-37) Red Cell Distribution Width 20.0 % (11.5-14.5) Platelet Count 235 x10^3/uL (140-400) Neutrophils (%) (Auto) 55 % (31-73) Lymphocytes (%) (Auto) 34 % (24-48) Monocytes (%) (Auto) 9 % (0-9) Eosinophils (%) (Auto) 1 % (0-3) Basophils (%) (Auto) 1 % (0-3) Neutrophils # (Auto) 4.0 x10^3uL (1.8-7.7) Lymphocytes # (Auto) 2.4 x10^3/uL (1.0-4.8) Monocytes # (Auto) 0.7 x10^3/uL (0.0-1.1) Eosinophils # (Auto) 0.1 x10^3/uL (0.0-0.7) Basophils # (Auto) 0.1 x10^3/uL (0.0-0.2) Sodium Level 139 mmol/L (136-145) Potassium Level 4.3 mmol/L (3.5-5.1) Chloride Level 100 mmol/L (98-107) Carbon Dioxide Level 38 mmol/L (21-32) Anion Gap 1 (6-14) Blood Urea Nitrogen 21 mg/dL (7-20) Creatinine 0.5 mg/dL (0.6-1.0) Estimated GFR (Cockcroft-Gault) 167.1 Glucose Level 102 mg/dL (70-99) Calcium Level 8.7 mg/dL (8.5-10.1) Test 01/27/17 07:18 Glucose (Fingerstick) 100 mg/dL (70-99) Microbiology 01/25/17 Blood Culture - Preliminary, Resulted NO GROWTH AFTER 1 DAY Medications Current Medications Sodium Chloride (Normal Saline Flush) 10 ml QSHIFT PRN IV AFTER MEDS AND BLOOD DRAWS Last administered on 01/25/17 11:09; Start 01/25/17 at 11:00 Sodium Chloride 1,000 ml @ 1,000 mls/hr Q1H IV Last administered on 01/25/17 11:09; Start 01/25/17 at 11:15; Stop 01/25/17 at 12:14; Status DC Ondansetron HCl (Zofran) 4 mg PRN Q8HRS PRN IV NAUSEA/VOMITING; Start 01/25/17 at 12:30; Stop 01/25/17 at 20:58; Status DC Acetaminophen (Tylenol) 650 mg PRN Q4HRS PRN PO FEVER; Start 01/25/17 at 12:30 ; Stop 01/25/17 at 20:58; Status DC Furosemide (Lasix) 40 mg 1X ONCE IVP Last administered on 01/25/17 16:03; Start 01/25/17 at 13:15; Stop 01/25/17 at 13:16; Status DC Albuterol/ Ipratropium (Duoneb) 3 ml RTQID NEB Last administered on 01/27/17 10:40; Start 01/25/17 at 13:15 Enoxaparin Sodium (Lovenox 40mg Syringe) 40 mg Q24H SQ Last administered on 14:00; Start 01/25/17 at 14:00; Stop 01/26/17 at 10:19; Status DC Acetaminophen (Tylenol) 325 mg PRN Q6HRS PRN PO MILD PAIN / TEMP; Start at 21:00 Acetaminophen/ Hydrocodone Bitart (Lortab 5/325) 1 tab PRN Q6HRS PRN PO MODERATE TO SEVERE PAIN; Start 01/25/17 at 21:00 Hydralazine HCl (Apresoline) 10 mg PRN Q4HRS PRN IVP ELEVATED BP, SEE COMMENTS ; Start 01/25/17 at 21:00 Ondansetron HCl (Zofran) 4 mg PRN Q8HRS PRN IV NAUSEA/VOMITING; Start 01/25/17 at 21:00 Albuterol Sulfate (Ventolin Neb Soln) 2.5 mg PRN Q4HRS PRN NEB SHORTNESS OF BREATH; Start 01/25/17 at 21:00 Insulin Aspart (Novolog) 0-9 UNITS TIDWMEALS SQ Last administered on 01/26/17 09:20; Start 01/26/17 at 08:00 Dextrose (Dextrose 50%-Water Syringe) 12.5 gm PRN Q15MIN PRN IV SEE COMMENTS; Start 01/25/17 at 21:00 Sulfur Hexafluoride Microspheres (Lumason) 25 mg STK-MED ONCE IVP ; Start at 08:50; Stop 01/26/17 at 08:51; Status DC Sulfur Hexafluoride Microspheres (Lumason) 25 mg 1X ONCE IVP Last administered on 01/26/17 09:15; Start 01/26/17 at 09:15; Stop 01/26/17 at 09:16 ; Status DC Famotidine (Pepcid) 20 mg QHS IVP Last administered on 01/26/17 20:22; Start 01/26/17 at 21:00 Metformin HCl (Glucophage) 500 mg BIDWMEALS PO Last administered on 01/27/17 09:14; Start 01/26/17 at 10:45 Furosemide (Lasix) 40 mg DAILY PO Last administered on 01/27/17 09:14; Start 01/26/17 at 10:45 Atenolol (Tenormin) 25 mg DAILY PO Last administered on 01/27/17 09:14; Start 01/26/17 at 10:45 Pantoprazole Sodium (Protonix) 40 mg DAILYAC PO Last administered on 01/27/17 09:14; Start 01/26/17 at 10:45 Enoxaparin Sodium (Lovenox 60mg Syringe) 60 mg Q12HR SQ Last administered on 09:15; Start 01/26/17 at 11:00 Iron Sucrose 500 mg/Sodium Chloride 275 ml @ 78.571 mls/ hr 1X ONCE IV Last administered on 01/26/17 22:42; Start 01/26/17 at 18:15; Stop 01/26/17 at 21:44 ; Status DC Active Scripts Active Mapap (Acetaminophen) 325 Mg Tablet 650 Mg PO PRN Q6HRS PRN Vitals/I & O Vital Sign - Last 24 Hours 01/26/17 01/26/17 01/26/17 01/26/17 12:55 15:00 16:18 19:00 Temp 98.4 98.3 98.4 98.3 Pulse 75 83 Resp 24 18 B/P (MAP) 125/68 (87) 117/72 (87) Pulse Ox 95 98 96 O2 Delivery Nasal Cannula Nasal Cannula Nasal Cannula Nasal Cannula O2 Flow Rate 3.0 3.0 3.0 3.0 01/26/17 01/26/17 01/26/17 01/27/17 20:00 20:18 23:00 01:34 Temp 98.5 98.5 Pulse 77 Resp 20 B/P (MAP) 119/66 (83) Pulse Ox 100 90 O2 Delivery Nasal Cannula Nasal Cannula Nasal Cannula BiPAP/CPAP O2 Flow Rate 4.0 3.0 3.0 01/27/17 01/27/17 01/27/17 01/27/17 04:19 07:00 07:27 09:14 Temp 97.9 97.9 Pulse 73 73 Resp 16 B/P (MAP) 122/68 (86) 122/68 Pulse Ox 94 92 O2 Delivery BiPAP/CPAP BiPAP/CPAP Nasal Cannula O2 Flow Rate 3.0 01/27/17 01/27/17 10:42 11:00 Temp 97.5 97.5 Pulse 81 Resp 16 B/P (MAP) 139/72 (94) Pulse Ox 96 O2 Delivery Nasal Cannula Nasal Cannula O2 Flow Rate 3.0 4.0 Intake and Output 01/26/17 01/26/17 01/27/17 15:00 23:00 07:00 Intake Total 300 ml 420 ml Output Total 225 ml 640 ml Balance 75 ml -220 ml NEFTALY THOMPSON III DO January 27, 2017 11:20
[2017-01-27] MEDS ORDERED: FAMO-63 PO (13:16)
[2017-01-27] MEDS ORDERED: ATEN25TA PO (13:16)
[2017-01-27] MEDS ORDERED: METF500T4 PO (13:18)
[2017-01-27] MEDS ORDERED: FURO40TA4 PO (13:18)
[2017-01-27] MEDS ORDERED: PANT40TA5 PO (13:18)
--- NOTE | 2017-01-27 13:26 | PDOC ---
PULMONARY PROGRESS NOTES Subjective used bipap last night, on 02 now, sob better. has occ cough, no pain Vitals Vital Signs Date Time Temp Pulse Resp B/P (MAP) Pulse Ox O2 Delivery O2 Flow Rate FiO2 01/27/17 11:00 97.5 81 16 139/72 (94) 96 Nasal Cannula 4.0 97.5 ROS: No Nausea, No Chest Pain General: Alert, No acute distress HEENT: Other (nc at perrl, shallow oropharynx) Lungs: Crackles, Other (NC 4 L) Cardiovascular: S1, S2 Abdomen: Soft, Non-tender, Other (morbidly obese) Neuro Exam: Alert, Oriented Extremities: Other (venous stasis, edema) Skin: Warm Labs Laboratory Tests Test 01/25/17 15:40 01/25/17 18:30 01/25/17 21:15 01/26/17 00:28 O2 Saturation 95 % (92-99) Arterial Blood pH 7.49 (7.35-7.45) Arterial Blood pCO2 at Patient Temp 61 mmHg (35-46) Arterial Blood pO2 at Patient Temp 73 mmHg (85-108) Arterial Blood HCO3 45 mmol/L (21-28) Arterial Blood Base Excess 19 mmol/L (-3-3) FiO2 30 Troponin I Quantitative < 0.017 ng/mL (0.000-0.055) Glucose (Fingerstick) 146 mg/dL (70-99) Nasal Screen MRSA (PCR) Negative (Negative) Test 01/26/17 07:45 01/26/17 08:00 01/26/17 12:39 01/26/17 16:10 White Blood Count 6.3 x10^3/uL (4.0-11.0) Red Blood Count 4.23 x10^6/uL (3.50-5.40) Hemoglobin 8.7 g/dL (12.0-15.5) Hematocrit 29.5 % (36.0-47.0) Mean Corpuscular Volume 70 fL (79-100) Mean Corpuscular Hemoglobin 21 pg (25-35) Mean Corpuscular Hemoglobin Concent 30 g/dL (31-37) Red Cell Distribution Width 19.8 % (11.5-14.5) Platelet Count 247 x10^3/uL (140-400) Neutrophils (%) (Auto) 61 % (31-73) Lymphocytes (%) (Auto) 28 % (24-48) Monocytes (%) (Auto) 10 % (0-9) Eosinophils (%) (Auto) 1 % (0-3) Basophils (%) (Auto) 0 % (0-3) Neutrophils # (Auto) 3.9 x10^3uL (1.8-7.7) Lymphocytes # (Auto) 1.7 x10^3/uL (1.0-4.8) Monocytes # (Auto) 0.6 x10^3/uL (0.0-1.1) Eosinophils # (Auto) 0.0 x10^3/uL (0.0-0.7) Basophils # (Auto) 0.0 x10^3/uL (0.0-0.2) Platelet Estimate Adequate (ADEQUATE) Hypochromasia Present Anisocytosis Slight Microcytosis Marked Sodium Level 140 mmol/L (136-145) Potassium Level 4.1 mmol/L (3.5-5.1) Chloride Level 99 mmol/L (98-107) Carbon Dioxide Level 41 mmol/L (21-32) Anion Gap 0 (6-14) Blood Urea Nitrogen 20 mg/dL (7-20) Creatinine 0.5 mg/dL (0.6-1.0) Estimated GFR (Cockcroft-Gault) 167.1 Glucose Level 165 mg/dL (70-99) Calcium Level 8.8 mg/dL (8.5-10.1) Iron Level 23 ug/dL (50-170) Total Iron Binding Capacity 420 ug/dL (250-450) Iron Saturation 5 % (15-34) Ferritin 6 ng/mL (8-252) Troponin I Quantitative < 0.017 ng/mL (0.000-0.055) O2 Saturation 95 % (92-99) Arterial Blood pH 7.45 (7.35-7.45) Arterial Blood pCO2 at Patient Temp 58 mmHg (35-46) Arterial Blood pO2 at Patient Temp 76 mmHg (85-108) Arterial Blood HCO3 40 mmol/L (21-28) Arterial Blood Base Excess 14 mmol/L (-3-3) FiO2 30 Glucose (Fingerstick) 122 mg/dL (70-99) 97 mg/dL (70-99) Test 01/26/17 21:30 01/27/17 05:50 5/12/17 07:18 01/27/17 11:34 Glucose (Fingerstick) 148 mg/dL (70-99) 100 mg/dL (70-99) 113 mg/dL (70-99) White Blood Count 7.2 x10^3/uL (4.0-11.0) Red Blood Count 4.46 x10^6/uL (3.50-5.40) Hemoglobin 9.4 g/dL (12.0-15.5) Hematocrit 31.0 % (36.0-47.0) Mean Corpuscular Volume 70 fL (79-100) Mean Corpuscular Hemoglobin 21 pg (25-35) Mean Corpuscular Hemoglobin Concent 31 g/dL (31-37) Red Cell Distribution Width 20.0 % (11.5-14.5) Platelet Count 235 x10^3/uL (140-400) Neutrophils (%) (Auto) 55 % (31-73) Lymphocytes (%) (Auto) 34 % (24-48) Monocytes (%) (Auto) 9 % (0-9) Eosinophils (%) (Auto) 1 % (0-3) Basophils (%) (Auto) 1 % (0-3) Neutrophils # (Auto) 4.0 x10^3uL (1.8-7.7) Lymphocytes # (Auto) 2.4 x10^3/uL (1.0-4.8) Monocytes # (Auto) 0.7 x10^3/uL (0.0-1.1) Eosinophils # (Auto) 0.1 x10^3/uL (0.0-0.7) Basophils # (Auto) 0.1 x10^3/uL (0.0-0.2) Sodium Level 139 mmol/L (136-145) Potassium Level 4.3 mmol/L (3.5-5.1) Chloride Level 100 mmol/L (98-107) Carbon Dioxide Level 38 mmol/L (21-32) Anion Gap 1 (6-14) Blood Urea Nitrogen 21 mg/dL (7-20) Creatinine 0.5 mg/dL (0.6-1.0) Estimated GFR (Cockcroft-Gault) 167.1 Glucose Level 102 mg/dL (70-99) Calcium Level 8.7 mg/dL (8.5-10.1) Laboratory Tests Test 01/26/17 16:10 01/26/17 21:30 01/27/17 05:50 01/27/17 07:18 Glucose (Fingerstick) 97 mg/dL (70-99) 148 mg/dL (70-99) 100 mg/dL (70-99) White Blood Count 7.2 x10^3/uL (4.0-11.0) Red Blood Count 4.46 x10^6/uL (3.50-5.40) Hemoglobin 9.4 g/dL (12.0-15.5) Hematocrit 31.0 % (36.0-47.0) Mean Corpuscular Volume 70 fL (79-100) Mean Corpuscular Hemoglobin 21 pg (25-35) Mean Corpuscular Hemoglobin Concent 31 g/dL (31-37) Red Cell Distribution Width 20.0 % (11.5-14.5) Platelet Count 235 x10^3/uL (140-400) Neutrophils (%) (Auto) 55 % (31-73) Lymphocytes (%) (Auto) 34 % (24-48) Monocytes (%) (Auto) 9 % (0-9) Eosinophils (%) (Auto) 1 % (0-3) Basophils (%) (Auto) 1 % (0-3) Neutrophils # (Auto) 4.0 x10^3uL (1.8-7.7) Lymphocytes # (Auto) 2.4 x10^3/uL (1.0-4.8) Monocytes # (Auto) 0.7 x10^3/uL (0.0-1.1) Eosinophils # (Auto) 0.1 x10^3/uL (0.0-0.7) Basophils # (Auto) 0.1 x10^3/uL (0.0-0.2) Sodium Level 139 mmol/L (136-145) Potassium Level 4.3 mmol/L (3.5-5.1) Chloride Level 100 mmol/L (98-107) Carbon Dioxide Level 38 mmol/L (21-32) Anion Gap 1 (6-14) Blood Urea Nitrogen 21 mg/dL (7-20) Creatinine 0.5 mg/dL (0.6-1.0) Estimated GFR (Cockcroft-Gault) 167.1 Glucose Level 102 mg/dL (70-99) Calcium Level 8.7 mg/dL (8.5-10.1) Test 01/27/17 11:34 Glucose (Fingerstick) 113 mg/dL (70-99) Medications Active Scripts Medications Dose Route/Sig Max Daily Dose Days Date Category Mapap (Acetaminophen) 325 Mg Tablet 650 Mg PO PRN Q6HRS PRN 01/01/16 Rx Impression . 1. Acute on chronic hypercapnic respiratory failure secondary to noncompliance to home BiPAP and suspected acute on chronic cor pulmonale/ acute on chronic diastolic heart failure. 2. Obesity hypoventilation syndrome and obstructive sleep apnea with recent intolerance to home BiPAP. 3. Abnormal chest x-ray with bilateral interstitial infiltrates consistent with congestive heart failure, either right or left heart. 4. Normal D-dimer. No further investigation is needed. 5. Acute encephalopathy, resolved. Plan . 1. BIPAP Qhs and prn during day 2. Follow up ABGs improved. 3. Diuresis. monitor k, cr 4. Bronchodilators. 5. Deep venous thrombosis prophylaxis. 6. The patient was instructed regarding the importance of compliance with BiPAP. 7. Follow chest x-ray as needed. 8. Discussed with RN and pt 9. lose wt, increase activity DANIS OLVERA MD January 27, 2017 13:26
--- NOTE | 2017-02-03 22:25 | DS ---
DATE OF DISCHARGE: 01/27/2017 ADMISSION DIAGNOSIS: Hypercapnic respiratory failure. DISCHARGE DIAGNOSES: Resolving hypercapnic respiratory failure with obesity, obstructive sleep apnea, anemia, edema. HOSPITAL COURSE: The patient is a pleasant 36-year-old female who has a BMI of 90. She presented with respiratory failure, multifactorial. We admitted the patient and put her on BiPAP, blew off some CO2. We consulted Pulmonary. Basically, she returned to her baseline, we discharged her to home. DISPOSITION: Home. ACTIVITY: As tolerated. DIET: Low sodium. MEDICATIONS: Please see the MRAD. TOTAL TIME ON DISCHARGE: 36 minutes. PRATIKL Jackeline THOMPSON DO DR: JEMMA/darshan JOB#: [id number] / [id number]
== END 2017-01-27 17:11 | disposition home health service (06) | DRG 189 ==
LOC: ER 10:37 → 1 WEST ICU 12:25 → 5 SOUTH 01-26 19:21
PROVIDERS: ADMIT Internal Medicine; ATTEND Internal Medicine
PROC: 5A09457 Assistance with Respiratory Ventilation, 24-96 Consecutive Hours, Continuous Positive Airway Pressure (ICD-10-PCS; principal; 2017-01-25)
DX: J96.22 Acute and chronic respiratory failure with hypercapnia (principal); G93.40 Encephalopathy, unspecified; I50.33 Acute on chronic diastolic (congestive) heart failure; E66.2 Morbid (severe) obesity with alveolar hypoventilation; Z68.45 Body mass index [BMI] 70 or greater, adult; J96.21 Acute and chronic respiratory failure with hypoxia; E11.9 Type 2 diabetes mellitus without complications; I11.0 Hypertensive heart disease with heart failure; J44.9 Chronic obstructive pulmonary disease, unspecified; D50.9 Iron deficiency anemia, unspecified; K21.9 Gastro-esophageal reflux disease without esophagitis; I27.81 Cor pulmonale (chronic); N92.0 Excessive and frequent menstruation with regular cycle; D64.9 Anemia, unspecified; Z91.19 Patient's noncompliance with other medical treatment and regimen
CPT/HCPCS: 99285; C8929; 36415; 36600; 70450; 71010; 80048; 80053; 82728; 82805; 82962; 83540; 83550; 83605; 84484; 85007; 85027; 85379; 87040; 87641; 93005; 94640; 94660; 94760; 96360; J1650; J1756; J1815; J1940; J7030; J7050; J7620; S0028; Q9950